=== PATIENT | male | born 1965 | race Caucasian/White ===

== ENCOUNTER 2023-06-15 13:25 | Outpatient (AMB) | payer MEDICARE, MEDICAID, SELFPAY ==
--- NOTE | 2023-06-15 13:35 | MHC.OFFVIS ---
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: No Accompanied by: EARTH SCIENCE PROFESSOR Allergies No Known Allergies Allergy (Verified 06/15/23 13:38) HPI Chronic pancreatitis/confirmed HPI Details Patient is 58-year-old male is history of chronic pancreatitis, GERD, and multiple musculoskeletal injuries, left rotator cuff surgery and right plate and screws injury, bilateral knee surgeries, left foot surgery for 3 fractures, left lower leg open fracture, liver laceration from injury from steel cable, intestinal perforation with liver injury and multiple back fractures, presents today for initial evaluation for chronic pancreatitis pain, right shoulder and low back pain. Patient reports right shoulder pain with overhead reaches and limited range of motions. He has upcoming orthopedic re-evaluation for potential hardware removal. Back pain is axial is discogenic component and does not radiate into his lower extremities. Patient reports multiple back injections in the past with minimal to no pain relief. Patient's main concern today is chronic abdominal pain in the mid epigastric area which is easily aggravated by for food intake and stress. 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 Patient reports he underwent traumatic experience of [place] [facility] [place]. Patient reports increased abdominal pain since then. Patient underwent ERCP in [place] on 04/29/2023 with stent removal and continues to have abdominal pain with periods of nausea and vomiting every other day. He takes compazine and zofran for nausea. Patient reports pancreatic enzymes have been beneficial since stent removal. He believes some of his symptoms are related to gastritis or ulcer and he takes omeprazole as needed but not every day. He does not have appetite, eats 2 meals per day, and states it hurts like hell after eating. Patient regularly follows Dr. Owens at [facility] for chronic pancreatitis, with most recent follow up on 06/02/23 and upcoming 07/27/23. Patient is currently managing his pain on morphine 15 mg IR bid prn, morphine 30 mg IR qid prn, morphine ER 60 mg bid, and duloxetine 60 mg daily, which provides him adequate analgesia on most days and allows him to be less symptomatic and more functional. Patient is currently on 270 MME daily dose. Pain affects his daily functioning, mobility, sleep, mood, social interactions and quality of life. Patient underwent pain consult with Dr. Carrera in 2020 and was proposed trial of methadone or transdermal Fentanyl patch but did not follow up. Interventional treatments were discussed in greater extent today with patient, he is hesitant towards injections and procedures at this time. Denies any fever, chills, malaise, shortness of breaths, dizziness, visual disturbances, bleeding, weight loss, weakness, foot drop, bladder or bowel dysfunction or saddle anesthesia. Location Upper stomach, right shoulder, and low back pain Duration Chronic pain, worsening for past 6 months Characteristics of symptom or complaint Constant aching, stabbing, shooting, sharp, cramping, tiring, exhausting Aggravating or associated factors PO intake, stress, cold weather changes, movements Relieving factors Morphine IR and ER, duloxetine Treatment Back injections, PT-no relief PFSH Medical History (Updated 06/15/23 @ 20:09 by SAI Lopes) GERD (gastroesophageal reflux disease) Back injuries Liver laceration Chronic pancreatitis Right shoulder pain Alcoholic polyneuropathy Chronic pain syndrome Gout Type 2 diabetes mellitus Surgical History Status post left foot surgery History of arthroscopy of left knee History of arthroscopy of right knee H/O repair of left rotator cuff Social History Alcohol intake: never Patient Tobacco Use Status: Current everyday Tobacco user Tobacco use type: Cigarette Cigarette Packs Per Day: 0.5 Substance Use Type: Marijuana and Caffiene Substance Use Type Other:: 2 cups of coffee daily Substance Use Frequency: Daily Review of Systems Const All systems reviewed & are unremarkable except as noted in HPI and below Reports as per HPI, Denies body aches, Denies chills, Reports difficulty sleeping, Reports fatigue, Denies fever(s), Reports headache(s), Denies malaise, Denies night sweats and Reports poor appetite Eyes Denies blurry vision ENT Reports Normal hearing present, Denies dysphagia, Reports headache(s), Denies neck pain and Denies sore throat Card Denies chest pain with activity, Denies lightheadedness, Denies palpitations and Denies dyspnea Resp Denies cough and Denies dyspnea GI Reports abdominal pain, Denies melena, Denies bloating, Denies hematochezia, Denies coffee ground emesis, Reports constipation, Reports GI cramping, Denies dysphagia, Reports heartburn, Denies fecal incontinence, Denies diarrhea, Reports nausea and Reports vomiting Denies difficulty urinating and Denies urinary incontinence Musc Reports as per HPI, Reports back pain, Reports arthralgias, Denies neck pain, Denies radiating pain into limb, Reports stiffness and Denies tingling Skin/Breast Denies lesions, Denies rash and Denies skin ulcer Neuro Reports Normal hearing present, Reports burning sensations, Reports headache(s), Denies radicular pain, Denies Sensory deficit (Neuro) and Denies tingling Endo Reports fatigue and Denies palpitations Physical Exam Vital Signs: Last Vital Signs Pulse 62 06/15/23 13:38 BP 124/71 06/15/23 13:38 Pulse Ox 97 06/15/23 13:38 Oxygen Delivery Method Room Air 06/15/23 13:38 BMI result Body Mass Index 20.9 General: Appears afebrile. Alert and oriented. Mood and affect appropriate. Follows and participates in conversation appropriately. Respiratory effort is unlabored. No cough. Able to transition from sit to stand unassisted. Ambulates with bilaterally normal heel strike and toe off. Resp Effort & Inspection: normal respiratory effort, able to speak in complete sentences, no cough and no respiratory distress GI Inspection: Yes normal to inspection, No abdominal wall ecchymosis, No distended and Yes scar Palpation (GI): Soft to palpation, Tenderness to palpation present (GI) in the epigastrum; with no rebound tenderness and Carnett's sign positive Back/Spine/Pelvis Cervical Spine: cervical ROM normal and No Cervical spine tenderness Thoracic/Lumbar Spine: thoracic and lumbar spine normal to inspection, Thoracic/lumbar spine scar(s), Lasegue's sign negative, straight leg raise negative bilaterally, pain with thoraco-lumbar ROM, thoraco-lumbar ROM limited, No thoracic spinal tenderness and No lumbar spinal tenderness Neuro Cranial nerves: Yes Normal hearing present Sensory Exam: No Sensory deficit (Neuro) Extrem General: Yes capillary refill normal, Yes no clubbing, cyanosis or edema and Yes no calf tenderness Right upper extremity: shoulder/upper arm (Limited ROM due to pain. Increased pain with overhead reaches. ) Details: tenderness Location: of the A-C joint and over the subacromial bursa and crepitus; no swelling, no ecchymosis and no unusual warmth Results Reviewed Results Reviewed: No imaging results are available for review today. Assessment & Plan Assessment & Plan (1) Abdominal wall pain: Code(s): R10.9 - Unspecified abdominal pain (2) Chronic pain syndrome: Code(s): G89.4 - Chronic pain syndrome (3) Right shoulder pain: Code(s): M25.511 - Pain in right shoulder (4) Chronic pancreatitis: Code(s): K86.1 - Other chronic pancreatitis (5) Low back pain: Code(s): M54.50 - Low back pain, unspecified Plan Discussed neuromodulation with PNS trial, ITDD pain pump trial for chronic abdominal pain, diagnostic and therapeutic injections, RFA procedures. Patient reports upcoming follow up with Orthopedic provider for potential right shoulder painful hardware removal. He declined interventional for right shoulder and low back pain today. Patient will consider Rectus Sheath Block with US guidance and Celiac Nerve Block under sedation as potential treatments. However, patient is leaning towards medical management only as this has been most effective for him, allowed him to be less symptomatic and more functional. He is considering Fentanyl patch for some of his opioid rotation. I have informed patient that our office does not offer opioid prescribing at this time. All questions have been answered patient agreed with the plan. Follow-up as needed. Coding Level of Care Code New Pt Level 4 (93787) Diagnoses Abdominal wall pain R10.9 Chronic pain syndrome G89.4 Right shoulder pain M25.511 Chronic pancreatitis K86.1 Low back pain M54.50
[2023-06-15 13:38] VITALS: BP 124/71; PULSE 62; O2SAT 97; BMI 20.9
== END 2023-06-15 14:20 | disposition home or self-care (01) ==
PROVIDERS: PCP Registered Nurse; Visit Provider Nurse Practitioner Family
DX: R10.9 Unspecified abdominal pain (principal); G89.4 Chronic pain syndrome; M25.511 Pain in right shoulder; K86.1 Other chronic pancreatitis; M54.50 Low back pain, unspecified
CPT/HCPCS: 99204

== ENCOUNTER → 2023-06-15 13:25 | Outpatient (BNVA) | payer MEDICARE, MEDICAID, SELFPAY | PROVIDERS: PCP Registered Nurse; Visit Provider Nurse Practitioner Family | DX: R10.9 Unspecified abdominal pain (principal); G89.4 Chronic pain syndrome; M25.511 Pain in right shoulder; M54.50 Low back pain, unspecified; K86.1 Other chronic pancreatitis | CPT/HCPCS: 99202 ==